=== PATIENT | female | born 1950 ===

== ENCOUNTER 2019-03-19 10:57 | Emergency (ER) | payer MEDICAID ==
[2019-03-19 10:59] VITALS: BMI 21.9
[2019-03-19 11:03] VITALS: TEMP 98.6
--- NOTE | 2019-03-19 11:40 | ED PDOC ---
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 She states the pain was initially like a cramp but has progressively worsened; she took Tylenol at home with minimal relief. She denies any fall, trauma, rash, fever, chills, chest pain or shortness of breath. Patient also denies any long travels or history of DVT. She states she does not follow up with a doctor - has one but hasnt followed up. no PE risk factors. Past Medical History Reviewed: Historical Data, Nursing Documentation, Vital Signs Vital Signs: Last Vital Signs Temp 98.6 F 03/19/19 10:59 Pulse 113 H 03/19/19 11:15 Resp 20 03/19/19 10:59 BP 188/91 H 03/19/19 10:59 Pulse Ox 98 03/19/19 10:59 - Medical History PMH: No Chronic Diseases - Surgical History Surgical History: No Surg Hx - Family History Family History: States: No Known Family Hx - Social History Current smoker - smoking cessation education provided: No Alcohol: None Drugs: Denies - Allergies Allergies/Adverse Reactions: Allergies Allergy/AdvReac Type Severity Reaction Status Date / Time No Known Allergies Allergy Verified 03/19/19 11:12 Review of Systems ROS Statement: Except As Marked, All Systems Reviewed And Found Negative Constitutional: Negative for: Fever, Chills Cardiovascular: Negative for: Chest Pain Respiratory: Negative for: Shortness of Breath Musculoskeletal: Positive for: Leg Pain Neurological: Negative for: Weakness, Numbness Physical Exam - Reviewed Nursing Documentation Reviewed: Yes Vital Signs Reviewed: Yes - Physical Exam Appears: Positive for: Non-toxic, No Acute Distress Head Exam: Positive for: ATRAUMATIC, NORMAL INSPECTION, NORMOCEPHALIC Skin: Positive for: Normal Color Eye Exam: Positive for: Normal appearance, EOMI, PERRL ENT: Positive for: Normal ENT Inspection Neck: Positive for: Supple Cardiovascular/Chest: Positive for: Regular Rate, Rhythm Respiratory: Positive for: Normal Breath Sounds. Negative for: Wheezing, Respiratory Distress Gastrointestinal/Abdominal: Positive for: Bowel Sounds, Soft. Negative for: Tenderness Back: Positive for: Normal Inspection Extremity: Positive for: Normal ROM (FROM of bilateral lower extremities), Capillary Refill (less than 2 sec, pulses 2+. neurovascular intact). Negative for: Tenderness, Pedal Edema, Calf Tenderness, Deformity, Swelling Neurological/Psych: Positive for: Awake, Alert, Oriented (x 3) - Laboratory Results Result Diagrams: 03/19/19 12:49 03/19/19 12:49 - ECG ECG: Positive for: Interpreted By Me, Viewed By Me ECG Rhythm: Positive for: Sinus Tachycardia Rate: 113 O2 Sat by Pulse Oximetry: 98 (RA) Pulse Ox Interpretation: Normal Medical Decision Making Medical Decision [place] female with atraumatic left leg pain VS reviewed, patient with elevated HR of 113 rule out dvt Plan: -- Labs -- EKG -- Motrin 600mg PO -- US Duplex lower extremity 1216 US Duplex lower extremity Findings: There is normal flow, compressibility, and augmentation of the left common femoral, femoral, and popliteal veins. The left posterior tibial veins appear patent. Impression: No evidence of deep venous thrombosis in the left lower extremity. 1432 US shows no significant abnormality. Patient reports improvement in symptoms, stable for discharge however given slightly elevated ddimer instructed pt to follow up for repeat US in one week. pt reevaluated states no chest pa in or sob. ---- Scribe Attestation: Documented by Heidi Kumar, acting as a scribe for Byron Pavon MD. Provider Scribe Attestation: All medical record entries made by the Scribe were at my direction and personally dictated by me. I have reviewed the chart and agree that the record accurately reflects my personal performance of the history, physical exam, medical decision making, and the department course for this patient. I have also personally directed, reviewed, and agree with the discharge instructions and d isposition. Disposition - Clinical Impression Clinical Impression: Calf pain - Patient ED Disposition Is Patient to be Admitted: No Counseled Patient/Family Regarding: Studies Performed, Diagnosis, Need For Followup - Disposition Disposition: Routine/Home Disposition Time: 14:32 Condition: IMPROVED Additional Instructions: follow up with your doctor in one week for repeat ultrasound. if you cant make an appointment then you can come to the ER take tylenol or motrin as needed return to the ED with any worsening or concerning symptoms Instructions: Muscle and Bone Pain (DC) Forms: [employer] [facility] (Macedonian), [employer] [facility] (Bruneian) Print Language: FRENCH
--- NOTE | 2019-03-19 12:31 | US ---
Left lower extremity ultrasound. Indication:leg pain Technique: Duplex ultrasound evaluation of the left lower extremity Comparison: None available Findings: There is normal flow, compressibility, and augmentation of the left common femoral, femoral, and popliteal veins. The left posterior tibial veins appear patent. Impression: No evidence of deep venous thrombosis in the left lower extremity.
[2019-03-19 12:55] LABS: BASO # 0.1 K/uL (0.0-0.2); BASO % 0.7 % (0.0-2.0); EOS % 0.3 % (0.0-4.0); HEMOGLOBIN 13.1 g/dL (12.0-16.0); LYMPH # 2.1 K/uL (1.0-4.3); LYMPH % 26.4 % (20.0-40.0); MEAN CELL VOLUME 82.9 fl (81.0-99.0); MEAN CORPUSCULAR HEMOGLOBIN 27.7 pg (27.0-31.0); MEAN CORPUSCULAR HGB CONC 33.4 g/dL (33.0-37.0); MEAN PLATELET VOLUME 8.2 fl (7.2-11.7); MONO # 0.4 K/uL (0.0-0.8); MONO % 5.2 % (0.0-10.0); NEUT # 5.4 K/uL (1.8-7.0); NEUT % 67.4 % (50.0-75.0); NRBC % 0.2 % (0.0-0.0); RBC 4.72 Mil/uL (3.80-5.20); RED CELL DISTRIBUTION WIDTH 15.8 % (11.5-14.5)
[2019-03-19 13:13] LABS: ALB/GLOB RATIO 1.1 (1.0-2.1); ALT/SGPT 17 U/L (9-52); AST/SGOT 29 U/L (14-36); BLOOD UREA NITROGEN 15 mg/dl (7-17); CALCIUM 10.2 mg/dL (8.4-10.2); GFR NON-AFRICAN AMERICAN > 60
[2019-03-19 14:58] VITALS: BP 124/75; RESP 18
--- NOTE | 2019-03-19 19:02 | CARD ---
APPROVED REPORT Date of service: 03/19/2019 EKG Measurement Heart [id number] <Conclusion> Sinus tachycardia Otherwise normal ECG
[2019-03-20 07:45] VITALS: PULSE 113; O2SAT 98
== END 2019-03-19 14:52 | disposition home or self-care (01) ==
LOC: H.ER 10:57
DX: M79.662 Pain in left lower leg (principal)